=== PATIENT | male | born 1965 | race Caucasian/White ===

== ENCOUNTER 2019-09-07 11:29 | Outpatient (CLI) | payer BC, SELFPAY ==
--- NOTE | ~2019-09-07 | CT_ITS ---
EXAMINATION: CT lung screening EXAM DATE: 09/07/2019 11:56 INDICATION: Personal history of nicotine dependence. TECHNIQUE: Spiral low dose CT of the chest without contrast. Axial, coronal and sagittal images were reviewed. The dose-length product (DLP) for this examination was 123.06 mGy-cm. The exposure was t ailored according to patient size (auto mA exposure control), and iterative reconstruction (ASIR) was used as additional dose reduction technique. There is no prior study for comparison. FINDINGS: There is a pleural-based ill-defined left lower lobe opacity measuring 7 mm average dimensi on, with some associated volume loss, but also some spiculations, Image 69. Several other small pulm onary nodules up to 3-4 mm, left lower lobe image 66. Tracheobronchial tree is patent. There is no mediastinal, hilar or axillary lymphadenopathy. There are no pleural or pericardial effusions. Th ere is no pneumothorax. Heart normal in size. There is mild coronary arterial calcification, poonam rial sclerosis. Mild hyperinflation and emphysema. Small amount of tracheal opacity probably mucus. U pper abdomen is unremarkable. There is thoracic spondylosis without osteoblastic or osteolytic lesi ons identified. IMPRESSION: Lung-RADS category 4x, could be infectious or postinfectious but short interval follow-up chest CT recommended in 1 month. Reviewed, dictated and finalized at location A. IMPRESSION: Lung-RADS category 4x, could be infectious or postinfectious but sh ort interval follow-up chest CT recommended in 1 month.
== END 2019-09-07 11:30 | disposition home or self-care (01) ==
PROVIDERS: PCP Family Medicine; Visit Provider Family Medicine
DX: Z12.2 Encounter for screening for malignant neoplasm of respiratory organs (principal); Z87.891 Personal history of nicotine dependence; R91.8 Other nonspecific abnormal finding of lung field
CPT/HCPCS: G0297

== ENCOUNTER 2019-11-17 15:38 | Outpatient (CLI) | payer BC, SELFPAY ==
--- NOTE | ~2019-11-17 | XR_ITS ---
XR chest 2V DATE: 11/17/2019 15:59 INDICATION: Pneumonia; recent CT lung screening examination of 09/07/2019 reported a pleural based ill- defined left lower lobe opacity measures 7 mm average dimension TECHNIQUE: PA and lateral views COMPARISON: 09/17/2019 CT lung screening FINDINGS: No pulmonary infiltrate or consolidation is evident. Normal heart size. No hilar or mediastinal enlargement. IMPRESSION: This chest radiographic examination is not sufficient to fully evaluate/compare the previ ously reported small pleural-based opacity in the left lower lobe on the 09/07/2019 CT lung screening e xamination. Repeat CT lung screening views are recommended. Reviewed, dictated and finalized at location A. IMPRESSION: This chest radiographic examination is not sufficient to fully eval uate/compare the previously reported small pleural-based opacity in the left lo wer lobe on the 09/07/2019 CT lung screening examination. Repeat CT lung screenin g views are recommended.
== END 2019-11-17 15:39 | disposition home or self-care (01) ==
LOC: ANHIMG 15:44
PROVIDERS: PCP Family Medicine; Visit Provider Family Medicine
DX: J18.9 Pneumonia, unspecified organism (principal)
CPT/HCPCS: 71046

== ENCOUNTER 2019-11-21 07:48 | Outpatient (CLI) | payer BC, SELFPAY ==
--- NOTE | ~2019-11-21 | CT_ITS ---
EXAMINATION: CT chest wo con DATE: 11/21/2019 08:11 INDICATION: Solitary lung nodule TECHNIQUE: Computed tomography (CT) of the chest was performed without intravenous contrast. Automate d exposure control and iterative reconstruction technique were employed. Exam dose: 214.96 mGy-cm to manny exam DLP. COMPARISON: 09/17/2019 CT lung screening 11/16/2021 view chest FINDINGS: There is interval enlargement of the irregular posterior pleural-based mass in the left low er lobe since 09/17/2019. Currently this measures up to 1.46 x 0.8 cm compared to 1.16 x 0.6 mm on 08/29. CT-guided percutaneous needle biopsy is recommended. The lungs are otherwise clear. No hilar or mediastinal mass lesion or lymphadenopathy. Normal heart size. Coronary artery calcification. No pericardial or pleural effusion. IMPRESSION: Suspicious irregular enlarging posterior pleura-based mass in left lower lobe; CT-guided percutaneous needle biopsy is recommended. Dr. Mcdaniels left a voicemail message on Dr. Holbrook's phone at [phone] on 11/21/2019 at 1045 hours, with the finding of the increased size of the irregular pleural-based mass currently measuring approx imately 8 x 14 mm, and recommendation for CT-guided percutaneous needle biopsy Reviewed, dictated and finalized at Location A. Reviewed, dictated and finalized at location A. IMPRESSION: Suspicious irregular enlarging posterior pleura-based mass in left lower lobe; CT-guided percutaneous needle biopsy is recommended. Dr. Mcdaniels left a voicemail message on Dr. Holbrook's phone at [phone] on 10/30 at 1045 hours, with the finding of the increased size of the irregular p leural-based mass currently measuring approximately 8 x 14 mm, and recommendati on for CT-guided percutaneous needle biopsy
== END 2019-11-21 07:49 | disposition home or self-care (01) ==
PROVIDERS: PCP Family Medicine; Visit Provider Family Medicine
DX: R91.8 Other nonspecific abnormal finding of lung field (principal)
CPT/HCPCS: 71250

== ENCOUNTER 2019-11-30 09:01 | Outpatient (CLI) | payer BC, SELFPAY ==
[2019-11-26 13:56] VITALS: BMI 26.6
[2019-11-30] VITALS (9 sets, daily range): BP systolic 113–135; BP diastolic 70–96; PULSE 54–75; RESP 14–18; O2SAT 99–100
--- NOTE | ~2019-11-30 | XR_ITS ---
EXAMINATION: XR chest 1V portable DATE: 11/30/2019 14:39 INDICATION: Left lung nodule status post percutaneous biopsy. TECHNIQUE: A single frontal view of the chest was obtained. COMPARISON: Chest single view at 12:47 PM FINDINGS: There is mild atelectasis in left lower lung zone. No pleural effusion or pneumothorax. The heart size is normal. IMPRESSION: 1. Mild atelectasis in left lower lung zone. Reviewed, dictated and finalized at location A.
--- NOTE | ~2019-11-30 | CT_ITS ---
EXAMINATION: CT biopsy lung DATE: 11/30/2019 11:45 INDICATION: Left lung nodule. TECHNIQUE: The procedure including the risks, benefits, and alternatives and possibility of chest tub e placement were discussed with the patient. Risks discussed included infection, approximately 1/20 r isk of symptomatic hemorrhage beyond mild hemoptysis, approximately 1/3 risk of pneumothorax, approxi mately 1/10 risk of pneumothorax severe enough to warrant chest tube placement, and rarely . The patient understood the risks and agreed to proceed. The patient was placed prone. The skin overlyin g the left lung lower lobe was prepped and draped in sterile fashion. Anesthetic was administered wi th 1% lidocaine subcutaneously. A 19 gauge outer needle was advanced under CT guidance to the lesion of interest. A 20 gauge core biopsy needle was then used to obtain 3 core biopsy specimens. The need le was removed and the entry site was cleaned and dressed. The mA was adjusted according to patient s ize. Iterative reconstruction technique was employed. The dose-length product was 160.27 mGy-cm. The re were no immediate complications. FINDINGS: CT images demonstrate the outer needle tip in a 10 mm nodule in left lung lower lobe. IMPRESSION: 1. CT-guided core needle biopsy of a nodule in left lung lower lobe. Reviewed, dictated and finalized at location A.
--- NOTE | ~2019-11-30 | XR_ITS ---
EXAMINATION: XR chest 1V portable DATE: 11/30/2019 12:50 INDICATION: Left lung nodule status post percutaneous biopsy. TECHNIQUE: A single frontal view of the chest was obtained. COMPARISON: Chest single view 11:41 AM FINDINGS: There is mild atelectasis in left lower lung zone. No pleural effusion or pneumothorax. The heart size is normal. IMPRESSION: 1. Mild atelectasis in left lower lung zone. Reviewed, dictated and finalized at location A.
--- NOTE | ~2019-11-30 | XR_ITS ---
EXAMINATION: XR chest 1V DATE: 11/30/2019 11:43 INDICATION: Left lung nodule status post percutaneous biopsy. TECHNIQUE: A single frontal view of the chest was obtained. COMPARISON: Chest CT 11/21/2019, chest 2 views 11/17/2019 FINDINGS: There are mild airspace opacities in left lower lung zone. No pleural effusion or pneumotho rax. The heart size is normal. IMPRESSION: 1. Mild airspace opacities in left lower lung zone, consistent with hemorrhage. Reviewed, dictated and finalized at location A.
[2019-11-30 09:46] LABS: Mean Platelet Volume 9.8 fl (7.4-10.4); Platelet Count Result 217 k/mm3 (150-375)
[2019-11-30 09:57] LABS: INR 0.9; Prothrombin Time 12.1 Seconds (11.1-14.7)
--- NOTE | 2019-11-30 15:09 | SUR.PHASEII ---
1455 - dr. watkins called and stated that pt could be discharged home 1500 - iv dc'd.
== END 2019-11-30 09:02 | disposition home or self-care (01) ==
PROVIDERS: Radiology Diagnostic Radiology; PCP Family Medicine; Visit Provider Family Medicine
DX: R91.8 Other nonspecific abnormal finding of lung field (principal)
CPT/HCPCS: 32405; 36415; 71045; 77012; 85049; 85610; 88305

== ENCOUNTER → 2020-02-19 11:48 | Outpatient (CLI) | payer BC, SELFPAY ==
--- NOTE | ~2020-02-19 | XR_ITS ---
EXAMINATION: XR chest 2V EXAM DATE: 02/19/2020 12:19 INDICATION: Cough. Clinical concern for pneumonia. TECHNIQUE: Frontal and lateral projections of the chest obtained and reviewed. Comparison is made to prior examination from 11/30/2019. FINDINGS: Interval development of left hemidiaphragm silhouetting, suspect opacified left lower lobe , could be atelectasis, postobstructive atelectasis, atelectasis and pneumonia. Please clinically cor relate and obtain follow-up exam. If this persists, CT is indicated to exclude underlying cancer. The lungs are otherwise clear. There are no pleural effusions. The cardiomediastinal silhouette is within normal limits. There is no pneumothorax suspected. The bones and soft tissues are unremarkab le. IMPRESSION: Opacified left lower lobe with volume loss. Differential diagnosis includes atelectasis, pneumonia and cancer. Follow-up indicated. Reviewed, dictated and finalized at location B.
== END ==
PROVIDERS: PCP Family Medicine; Visit Provider Family Medicine
DX: R05 Cough (principal)
CPT/HCPCS: 71046

== ENCOUNTER 2020-03-11 02:06 | Inpatient (IN) | payer BC, SELFPAY ==
[2020-03-11] VITALS (12 sets, daily range): BP systolic 106–140; BP diastolic 74–86; PULSE 81–98; RESP 14–20; TEMP 36.6–37.2; O2SAT 93–99; BMI 25.1
--- NOTE | ~2020-03-11 | CT_ITS ---
EXAMINATION: CTA chest PE protocol DATE: 03/11/2020 03:10 INDICATION: Shortness of breath, cough and chest pain. Lung mass. TECHNIQUE: Computed tomography (CT) pulmonary angiogram of the chest was performed with 100 mL Omnipa que-350 intravenous contrast. Additional 3D reconstructions utilizing coronal maximum intensity proje ction (MIP) were performed. Automated exposure control and iterative reconstruction technique were em ployed. The dose-length product was 507.90 mGy-cm. COMPARISON: 11/21/2019 FINDINGS: Excellent contrast opacification of the pulmonary arteries. There is mild streak artifact from dense contrast in the superior vena cava and right atrium. Moderate scattered respiratory motion artifact w hich decreases sensitivity in many of the segmental and subsegmental pulmonary arteries. No definitiv e pulmonary embolism. Large left pleural effusion with near complete collapse of the left lower lobe and with dependent compressive atelectasis in the lingula and left upper lobe. Minimal dependent atel ectasis in the right lower lobe. Mild emphysema. No pulmonary edema or evident pneumonia. Mediastinal lymphadenopathy including a 15 x 13 mm AP window lymph node along with stranding and some nodularity in the subpleural fat of the mediastinum and left paracardial fat pad which is concerning for metast atic disease. Heart size is normal. New 2.2 cm hypodense mass in segment 8 of the liver which is also concerning for metastatic disease. Bones are unremarkable. IMPRESSION: 1. No pulmonary embolism. Sensitivity decreased in the segmental and essentially nondiagnostic in man y of the subsegmental pulmonary arteries due to moderate scattered motion artifact. 2. Large likely malignant left pleural effusion with associated atelectasis including near complete c ollapse of the left lower lobe. Consider diagnostic thoracentesis. 3. Mediastinal lymphadenopathy along with stranding and nodularity in the mediastinal and left perica rdial fat which is concerning for metastatic disease. 4. Likely metastatic 2.2 cm hepatic mass. 5. Mild emphysema. Reviewed, dictated and finalized at location A. IMPRESSION: 1. No pulmonary embolism. Sensitivity decreased in the segmental and essentiall y nondiagnostic in many of the subsegmental pulmonary arteries due to moderate scattered motion artifact. 2. Large likely malignant left pleural effusion with associated atelectasis inc luding near complete collapse of the left lower lobe. Consider diagnostic thora centesis. 3. Mediastinal lymphadenopathy along with stranding and nodularity in the media stinal and left pericardial fat which is concerning for metastatic disease. 4. Likely metastatic 2.2 cm hepatic mass. 5. Mild emphysema.
--- NOTE | ~2020-03-11 | US_ITS ---
EXAMINATION: US thoracentesis DATE: 03/11/2020 12:57 INDICATION: Left pleural effusion TECHNIQUE: The procedure and its risks and benefits were discussed with the patient. Potential risks discussed included bleeding, infection, and pneumothorax. The patient understood the risks and agreed to proceed. The skin was prepped and draped in sterile fashion. 1% lidocaine was used for local anes thesia. Under ultrasound guidance, a 5 Fr catheter with trochar was advanced into the large left pleu ral effusion. Fluid was aspirated. The catheter was removed, and a dressing was applied. There were n o immediate complications. FINDINGS: Ultrasound images demonstrate a large left pleural effusion and the catheter within the fluid. IMPRESSION: 1. Successful ultrasound-guided thoracentesis yielding 1000 mL of clear dark brian-colored fluid. Reviewed, dictated and finalized at location A. IMPRESSION: 1. Successful ultrasound-guided thoracentesis yielding 1000 mL of clear dark a mber-colored fluid.
--- NOTE | ~2020-03-11 | XR_ITS ---
EXAMINATION: XR chest 1V portable DATE: 03/11/2020 02:40 INDICATION: Shortness of breath, cough and chest pressure. TECHNIQUE: frontal view of the chest was obtained. COMPARISON: Chest radiograph dated 02/19/2020 FINDINGS: Interval development of a moderate to large left pleural effusion with compressive atelectasis. Under lying malignancy or pneumonia in the obscured left lower lung zone could not be excluded. No pulmonar y edema, pneumothorax or right-sided pleural effusion. The left heart border is obscured. The remaind er of the cardiomediastinal silhouette is normal. IMPRESSION: 1. New unilateral moderate to large left pleural effusion with associated atelectasis. Underlying pne umonia or malignancy not excludable and would consider diagnostic thoracentesis. Reviewed, dictated and finalized at location A. IMPRESSION: 1. New unilateral moderate to large left pleural effusion with associated atele ctasis. Underlying pneumonia or malignancy not excludable and would consider di agnostic thoracentesis.
--- NOTE | ~2020-03-11 | XR_ITS ---
EXAMINATION: [id number] DATE: 03/11/2020 12:41 INDICATION: Left pleural effusion postthoracentesis TECHNIQUE: frontal view of the chest was obtained. COMPARISON: Chest radiograph dated 03/11/2020 FINDINGS: Minimal decrease in a still moderate to large left pleural effusion. The right lung and left upper katerine ng are clear. Residual opacification of the lower lung zone most likely atelectasis although underlyi ng pneumonia or malignancy not excludable. No pneumothorax or right-sided pleural effusion. The left heart border remains obscured. The remainder of the cardiomediastinal silhouette is normal. IMPRESSION: 1. Residual moderate to large left pleural effusion post left thoracentesis. No pneumothorax. 2. Persistent opacification of the left lower lung zone most likely associated compressive atelectasi s although could not extruded underlying pneumonia or malignancy. Reviewed, dictated and finalized at location A. IMPRESSION: 1. Residual moderate to large left pleural effusion post left thoracentesis. No pneumothorax. 2. Persistent opacification of the left lower lung zone most likely associated compressive atelectasis although could not extruded underlying pneumonia or mal ignancy.
--- NOTE | ~2020-03-11 | XR_ITS ---
XR chest 2V 03/12/2020 08:37 Indication: Left pleural effusion postthoracentesis. Procedure: PA and lateral views of the chest Comparison: 03/11/2020 Findings: Persistent moderate left pleural effusion with underlying airspace disease, likely atelecta sis. Right lung clear. No pneumothorax. Impression: 1: Moderate left pleural effusion with underlying compressive atelectasis. Cannot exclude superimpose d pneumonia. No pneumothorax identified post thoracentesis. Reviewed, dictated and finalized at location A. Impression: 1: Moderate left pleural effusion with underlying compressive atelectasis. Nader ot exclude superimposed pneumonia. No pneumothorax identified post thoracentesi s.
--- NOTE | 2020-03-11 02:20 | ECG_ITS ---
Measurements Intervals [place] Rate: 90 P: 35 [place]: 159 QRS: 23 QRSD: 88 T: 28 QT: 333 QTc: 408 Interpretive Statements SINUS RHYTHM INCOMPLETE RIGHT BUNDLE BRANCH BLOCK LOW VOLTAGE- LIMB LEADS BORDERLINE ECG Electronically Signed On 03-11-2020 7:05:52 CDT by Jose E Washington D.O.
[2020-03-11 02:38] LABS: Basophils Absolute Auto 0.1 K/mm3 (0.0-0.1); Basophils Percent Auto 0.6 % (0.2-1.2); Eosinophils Absolute Auto 0.2 K/mm3 (0-0.3); Eosinophils Percent Auto 1.8 % (0-4.4); Hematocrit 41.3 % (42.0-52.0); Hemoglobin 14.1 g/dL (14.0-18.0); Immature Granulocyte Absolute 0.05 K/mm3 (0.00-0.031); Immature Granulocyte Percent A 0.5 % (0-0.5); Lymphocytes Absolute Auto 1.74 K/mm3 (0.9-3.2); Lymphocytes Percent Auto 16.5 % (18.3-44.2); Mean Corpuscular HGB Conc 34.1 g/dl (32-36); Mean Corpuscular Hemoglobin 31.3 pg (26-34); Mean Corpuscular Volume 91.6 fl (80-100); Mean Platelet Volume 9.5 fl (7.4-10.4); Monocytes Absolute Auto 1.3 K/mm3 (0.1-0.6); Monocytes Percent Auto 12.3 % (2.6-8.5); Neutrophils Absolute Auto 7.2 K/mm3 (1.3-6.7); Neutrophils Percent Auto 68.3 % (45.5-73.1); Platelet Count Result 296 k/mm3 (150-375); Red Blood Count 4.51 M/mm3 (4.6-6.20); White Blood Count 10.6 K/mm3 (4.5-10.0)
[2020-03-11 02:42] LABS: INR 1.1; Partial Thromboplastin Time 33.4 SECONDS (22.3-36.8)
[2020-03-11 02:43] LABS: Anion Gap 8 mmol/L (8-16); Blood Urea Nitrogen 13 mg/dL (9-20); Calcium 8.4 mg/dL (8.4-10.2); Carbon Dioxide 25 mmol/L (22-30); Chloride 101 mmol/L (98-107); Estimated CRCL calculation 90 ml/min; Estimated Glomerular Filt Rate > 60; Glucose 107 mg/dL (75-110); Sodium 134 mmol/L (137-145)
--- NOTE | 2020-03-11 02:47 | ED.SOB ---
HPI - SOB/Dyspnea General Chief Complaint: Shortness of Breath/Dyspnea Stated Complaint: cough Time Seen by Provider: 03/11/20 02:11 Source: RN notes reviewed History of Present Illness HPI Narrative: Patient presents emergency department from home for shortness of breath. Patient states that for the past 2 days he has had a cough that is been nonproductive. He states that this evening around 1 AM he began to have shortness of breath states that it feels like he is having difficulty exhaling. States is also worse if he lays down flat. He states he does have some pain over the left side of his chest with the symptoms he denies any fevers or chills abdominal pain nausea vomiting or any other symptoms. Patient has a history of lung cancer with left lower lobe lobectomy performed at [facility] in November 2019 Related Data Home Medications Medication Instructions Recorded Confirmed multivitamin 1 tablet PO DAILY 08/31/19 11/26/19 Allergies Allergy/AdvReac Type Severity Reaction Status Date / Time amoxicillin Allergy Unknown Rash Verified 02/19/20 11:17 Penicillins Allergy Unknown rash Verified 02/19/20 11:17 Review of Systems Review of Systems: Narrative: Gen.: Denies fevers or chills ENT: Denies congestion Respiratory: See HPI CV: Reports chest pain GI: Denies abdominal pain nausea, emesis or diarrhea Musculoskeletal: Denies back pain or muscle pain Neuro: Denies numbness, tingling, weakness or focal weakness Skin: Denies rash Except as documented, all other systems reviewed and negative PMFSH Past Medical History Medical History Adenosquamous carcinoma of left lung HLD (hyperlipidemia) Surgical History Surgical History (Updated 01/06/20 @ 10:35 by Parmjit Arias PA-C) Status post partial lobectomy of lung Social History Social History Smoking packs per day: 0.75 Smoking cigarettes per day: 15.0 Years smoked: 41 Smoking pack-years: 30.75 Smoking status: Former smoker Tobacco type: cigarettes Second hand tobacco smoke exposure: Yes Smoking end date: 12/23/19 Alcohol intake: never Substance use: never Substance use type: does not use Gender identity (if verbalized by the patient): Male Exam Narrative: Exam Narrative: APPEARANCE: No acute distress, nontoxic, resting in bed EYES: EOMI HEENT: Normocephalic, atraumatic, OMM RESPIRATORY: No respiratory distress decreased breath sounds in left lung base no rhonchi or rales CARDIOVASCULAR: Regular rate and rhythm without murmurs rubs or gallops. ABDOMINAL: Soft, nontender, nondistended, no rebound or guarding MUSCULOSKELETAl: Moves all extremities. No clubbing, cyanosis or edema. NEURO: Awake and alert. Following commands, speech normal, no focal deficits SKIN:: Warm, dry. No rashes lesions or abrasions PSYCHIATRIC: Normal affect/mood, Course Course Emergency Course: Reviewed old records. Patient with left lower lobe lobectomy performed at [place]. States that no further chemotherapy or treatment was needed and he does not see oncology. He did have a chest x-ray performed as an outpatient by Dr. Holbrook in January that did not have a pleural effusion at that time Discussed Dr. Barlow presentation work-up he agrees with admission at this time. Will put in for thoracentesis in a.m. Discussed with patient and family results of workup and diagnosis. Discussed need for admission. Patient and family understand and agree to current treatment plan Vital Signs Vital signs: Vital Signs Pulse Rate 88 03/11/20 02:12 Respiratory Rate 16 03/11/20 02:12 Blood Pressure 133/79 03/11/20 02:12 Pulse Oximetry 93 03/11/20 02:12 Pulse Rate 88 03/11/20 03:43 Respiratory Rate 19 03/11/20 03:43 Blood Pressure 113/86 03/11/20 03:43 Pulse Oximetry 96 03/11/20 03:43 MDM - SOB/Dyspnea Lab Data Result diagra
[2020-03-11 02:55] LABS: Troponin I < 0.012 ng/mL (0.000-0.034)
[2020-03-11 03:21] LABS: Lactic Acid Reflex 0.6 mmol/L (0.7-2.1)
--- NOTE | 2020-03-11 04:24 | PM.IMHP ---
H&P: HPI History of Present Illness Date/Time: 03/11/20 04:24 Chief complaint: Left pleural effusion, dyspnea Narrative: This is a 54 year old male with known history of recently diagnosed left lower lobe lung cancer s/p left lower lobectomy in November 2019 who presented to the hospital [facility] with a complaint of 2 days of nonproductive coughing and increased shortness of breath. He began to notice this evening that he was having a very difficult time laying flat and felt like he couldn't get a good deep breath. He also has had some left lateral chest discomfort which he attributes to coughing. He denies any hemoptysis, sore throat, fever, chills, recent weight loss, or night sweats. The patient was told that his cancer should be in remission. He sees Oncology at [facility] and is under the care of Dr. Fagan. In the ER [facility] the patient was found to have a large left sided pleural effusion. He denies any previous history of pleural effusions. [facility] he also denies any nausea, vomiting, abdominal pain, dysuria, palpitations, LE swelling, diarrhea or rectal bleeding. Currently the patient is saturating 96% on room air. No other complaints. The patient has a 40+ year history of smoking. He was smoking up to 2 ppd for about 15 years and just quit smoking in November 2019. Review of Systems Review of Systems: All systems reviewed & are unremarkable except as noted in HPI and below PMFSH Past Medical History Medical History Adenosquamous carcinoma of left lung HLD (hyperlipidemia) Surgical History Surgical History Status post partial lobectomy of lung Family History Family History Mother Family history of diabetes mellitus in first degree relative Father Family history of coronary artery disease Social History Social History Smoking packs per day: 0.75 Smoking cigarettes per day: 15.0 Years smoked: 41 Smoking pack-years: 30.75 Smoking status: Former smoker Tobacco type: cigarettes Second hand tobacco smoke exposure: Yes Smoking end date: 12/23/19 Alcohol intake: never Substance use: never Substance use type: does not use Gender identity (if verbalized by the patient): Male Meds Home Medications and Allergies Home Medications Medication Instructions Recorded Confirmed Type multivitamin 1 tablet PO DAILY 08/31/19 11/26/19 History Allergies Allergy/AdvReac Type Severity Reaction Status Date / Time amoxicillin Allergy Unknown Rash Verified 02/19/20 11:17 Penicillins Allergy Unknown rash Verified 02/19/20 11:17 Vital Signs Vital Signs - 24 hr 03/11/20 02:12 03/11/20 03:43 Pulse Rate 88 88 Respiratory Rate 16 19 Blood Pressure 133/79 113/86 Pulse Oximetry 93 96 Exam Const: General: cooperative, no acute distress, alert and awake Nutritional Appearance: well nourished Orientation/consciousness: patient oriented x3 HENMT: Head: normal to inspection General nose exam: Normal external nose present Face and sinus: normal facial exam Mouth: Yes Normal oral and palatal mucosa present and Yes oropharynx normal Eyes: Pupils: Equal, round and reactive pupils present EOM: EOMs intact bilaterally Neck: Neck: supple and no JVD Thyroid: thyroid normal Lymphatic: lymphadenopathy not noted Resp: Effort & Inspection: normal respiratory effort Auscultation: breath sounds absent (Left middle/lower lung field+++ ) on th left Cardio: Rate: regular rate Rhythm: regular rhythm Heart sounds: no murmurs GI: Inspection: normal to inspection Auscultation: normal bowel sounds Skin: General skin exam: normal color and no rashes or lesions noted Neuro: General: patient oriented x3 Cranial nerves: Yes CN's II-XII intact bilaterally and Yes Equal, round and reacti
--- NOTE | 2020-03-11 04:43 | ADMGEN ---
This patient, Jorden Koch, was admitted to Medical Room 346-01. Patient/family oriented to hospital policies and general routines including ID bracelet, bed and alarms, visiting hours, pain management, procedures, bathroom and other care routines, personal items, smoking policy, room service/diet, and visiting hours. Valuables list has been completed. Information on how to activate the Rapid Response Team has been discussed. Patient/Family are encouraged to report perceived risks to care and to ask questions if they do not understand what they are told or what they should do.
[2020-03-11 05:27] LABS: INR 1.1; Prothrombin Time 13.8 Seconds (11.1-14.7)
[2020-03-11 05:28] LABS: Partial Thromboplastin Time 34.1 SECONDS (22.3-36.8)
[2020-03-11] MEDS: SODIUM CHLORIDE 0.9% IV 1,000 ML 100 ML IV CONT (05:29)
[2020-03-11 05:35] LABS: Basophils Percent Auto 0.4 % (0.2-1.2); Eosinophils Absolute Auto 0.2 K/mm3 (0-0.3); Eosinophils Percent Auto 1.5 % (0-4.4); Hematocrit 41.1 % (42.0-52.0); Hemoglobin 14.1 g/dL (14.0-18.0); Immature Granulocyte Absolute 0.06 K/mm3 (0.00-0.031); Immature Granulocyte Percent A 0.6 % (0-0.5); Lymphocytes Absolute Auto 1.67 K/mm3 (0.9-3.2); Lymphocytes Percent Auto 15.8 % (18.3-44.2); Mean Corpuscular HGB Conc 34.3 g/dl (32-36); Mean Corpuscular Hemoglobin 31.1 pg (26-34); Mean Corpuscular Volume 90.7 fl (80-100); Mean Platelet Volume 9.3 fl (7.4-10.4); Monocytes Absolute Auto 1.2 K/mm3 (0.1-0.6); Monocytes Percent Auto 11.4 % (2.6-8.5); Neutrophils Absolute Auto 7.5 K/mm3 (1.3-6.7); Neutrophils Percent Auto 70.3 % (45.5-73.1); Platelet Count Result 293 k/mm3 (150-375); Red Blood Count 4.53 M/mm3 (4.6-6.20); White Blood Count 10.6 K/mm3 (4.5-10.0)
[2020-03-11 05:54] LABS: Anion Gap 6 mmol/L (8-16); Blood Urea Nitrogen 13 mg/dL (9-20); Calcium 8.6 mg/dL (8.4-10.2); Carbon Dioxide 26 mmol/L (22-30); Chloride 102 mmol/L (98-107); Estimated CRCL calculation 90 ml/min; Estimated Glomerular Filt Rate > 60; Glucose 98 mg/dL (75-110); Lactate Dehydrogenase 567 U/L (313-618); Potassium 4.3 mmol/L (3.4-5.0); Sodium 134 mmol/L (137-145)
--- NOTE | 2020-03-11 11:26 | PM.IMPN ---
Progress Note: A&P Assessment and Plan (1) Pleural effusion on left: Code(s): J90 - Pleural effusion, not elsewhere classified Status: Acute Assessment and Plan: U/S guided diagnostic thoracentesis with cytology to be performed today. Dr. Cao consulted and appreciate recommendations. Await further rec from oncology Likely do CXR tomorrow morning to ensure no pneumothorax or other complications Monitor (2) Acute dyspnea: Code(s): R06.00 - Dyspnea, unspecified Status: Acute Assessment and Plan: Secondary to acute pleural effusion. Oxygen supplementation as needed. thoracentesis to be done today (3) Adenosquamous carcinoma of left lung: Code(s): C34.92 - Malignant neoplasm of unspecified part of left bronchus or lung Status: Chronic Assessment and Plan: r/o lung cancer recurrence. It should be noted that [facility] interpretation makes no mention of the mediastinal lymphadenopathy and 2.2 hepatic mass which is noted on this facility's radiology interpretation; concerning for recurrence. Spoke with Dr. Cao who will discuss further after thoracentesis. Await further rec from Dr. Cao Likely need prompt follow up with his established oncologist. (4) HLD (hyperlipidemia): Qualifiers: Hyperlipidemia type: unspecified Qualified Code(s): E78.5 - Hyperlipidemia, unspecified Code(s): E78.5 - Hyperlipidemia, unspecified Status: Chronic Assessment and Plan: Stable. Subjective Date/time seen: 03/11/20 11:26 Interval history: Patient is a 54 yo M with known history of recently diagnosed left lower lobe lung cancer s/p left lower lobectomy in November 2019 who is here for dyspnea likely secondary to large likely malignant left pleural effusion with associated atelectasis and near complete collapse of left lower lobe. Patient is feeling reasonable today; about the same as yesterday. Mild cough when breathing out. No other complaints. Denies f/c/s, myalgias/arthralgias, headaches, dizziness, lightheadedness, changes in v/h, cp/palpitations, sob/cough, n/v/d/c, abd pain, changes in BMs, dysuria, hematuria, cloudy urine, calf pain/swelling. Review of Systems Review of Systems: All systems reviewed & are unremarkable except as noted in HPI and below Exam Narrative: Exam Narrative: General: Patient sitting upright in bed in no acute distress. is in room visiting HEENT: Normocephalic, EOMI, oral mucosa moist. Cardiovascular: Rate and rhythm are regular. No notable murmur, rub, or gallop. Respiratory: Lungs clear to auscultation R lung castro and anterior left lung field. No breath sounds left posterior lung castro. Non-labored breathing. Occasional cough. No acute respiratory distress Abdomen: Soft, non-tender, non-distended, bowel sounds present. Extremities: Peripheral pulses intact. No edema. Neuro: No focal neurological deficits. Speech is clear. Objective Data Vital Signs Vital Signs: Last Vital Signs Temp 98.4 F 03/11/20 04:46 Pulse 82 03/11/20 08:00 Resp 18 03/11/20 04:46 BP 122/76 03/11/20 04:46 Pulse Ox 99 03/11/20 04:46 Meds/Results Medications: Active Medications Generic Name Dose Route Start Last Admin Trade Name Freq PRN Reason Stop Dose Admin Acetaminophen 650 mg 03/11/20 04:50 Tylenol Tablet PO Q4H PRN Mild Pain (1-3) or Fever Hydrocodone Bitart/Acetaminophen 1 tab 03/11/20 04:50 [place] 5-325 Mg PO Q4H PRN Moderate Pain (4-6) Radiology Results: ITS Impressions Chest X-Ray 03/11/20 08:37 IMPRESSION: 1. New unilateral moderate to large left pleural effusion with associated atelectasis. Underlying pneumonia or malignancy not excludable and would consider diagnostic thoracentesis. Chest CTA 03/01
[2020-03-11 12:41] LABS: pH Pleural Fluid 7.388 (7.210-7.500)
[2020-03-11 13:55] LABS: Appearance Pleural Fluid Cloudy (Clear); Color Pleural Fluid Red (Colorless); Pleural fluid source Pleural fluid
[2020-03-11 13:56] LABS: Lymphocytes Pleural Fluid 42 %; Mesothelial Cells Pleural Flui 4 %; Monocytes Pleural Fluid 4 %; Neutrophils Pleural Fluid 50 % (0-25)
--- NOTE | 2020-03-11 15:55 | PDONCCN ---
[facility] - Date of Consult Date/Time: 03/11/20 15:55 Requesting Physician: Vic Franz PA-C Primary Care Provider: Renato Holbrook MD - Consult Narrative Reason for consult: Likely metastatic non-small cell lung cancer Narrative: Jorden Koch is a 54 year old male This is a pleasant 54-year-old male with history of smoking who was recently diagnosed with left lower lobe non-small cell lung cancer status post left lower lobe lobectomy done in November of 2019. Apparently patient had early stage cancer without any lymph node involvement. Surgery was performed by Dr. Stone at [facility]. He now came into the hospital with increasing shortness of breath along with nonproductive cough without any hemoptysis for last 2 days duration. He denies any fever chills and weight loss. He denies any bone pain and headache. Patient quit smoking right before the surgery. CT scan was performed that showed no evidence of pulmonary embolism but a large likely malignant pleural effusion along with mediastinal lymphadenopathy and 2.2 cm hepatic mass. He denies any abdominal pain. Review of Systems - Review of Systems All systems reviewed & are unremarkable except as noted in HPI and [facility] Medical History: Medical History (Last Reviewed 03/11/20 @ 04:49 by Hubert Barlow MD) Adenosquamous carcinoma of left lung HLD (hyperlipidemia) Surgical History: Surgical History (Last Reviewed 03/11/20 @ 04:49 by Hubert Barlow MD) Status post partial lobectomy of lung Family History: Family History (Last Updated 03/11/20 @ 05:36 by Latonya River RN) Mother Family history of diabetes mellitus in first degree relative IBS (irritable bowel syndrome) Father Family history of coronary artery disease - Social History Social History: Social History (Last Reviewed 03/11/20 @ 04:49 by Hubert Barlow MD) Gender Identity: Gender identity (if verbalized by the patient): Male Alcohol Use: Alcohol intake: never Substance Use: Substance use: never Substance use type: does not use Others: Spiritual care concerns: No Smoking Status: Smoking status: Former smoker Tobacco type: cigarettes Second hand tobacco smoke exposure: Yes Smoking end date: 12/23/19 Smoking Pack-years: Smoking packs per day: 0.75 Smoking cigarettes per day: 15.0 Years smoked: 41 Smoking pack-years: 30.75 Meds Home Medications Medication Instructions Recorded Confirmed Type No Home Medications 03/11/20 03/11/20 History Allergies Allergy/AdvReac Type Severity Reaction Status Date / Time amoxicillin Allergy Unknown Rash Verified 02/19/20 11:17 Penicillins Allergy Unknown rash Verified 02/19/20 11:17 Results - Labs CBC & Chem 7: 03/11/20 05:10 03/11/20 05:10 Labs: Short CBC 03/11/20 03/11/20 Range/Units 02:26 05:10 WBC 10.6 H 10.6 H (4.5-10.0) K/mm3 Hgb 14.1 14.1 (14.0-18.0) g/dL Hct 41.3 L 41.1 L (42.0-52.0) % Plt Count 296 293 (150-375) k/mm3 BMP 03/11/20 03/11/20 02:26 05:10 Sodium 134 L 134 L Potassium 4.0 4.3 Chloride 101 102 Carbon Dioxide 25 26 BUN 13 13 Creatinine 0.80 0.80 Glucose 107 98 Calcium 8.4 8.6 Cardiac Enzymes 03/11/20 Range/Units 02:26 Troponin I < 0.012 (0.000-0.034) ng/mL Assessment and Plan - Additional Plan History of early stage non-small cell lung cancer is status post left lower lobectomy in November of 2019. Patient now came into the hospital with increasing short along with nonproductive cough. CT scan showed malignant looking left-sided pleural effusion along with mediastinal lymphadenopathy and 2.2 cm hepatic mass. These findings are quite worrisome for metastatic non-small cell lung cancer. Thoracentesis was performed today and cytology is pending. I have provided this patient my office information for further workup and management
[2020-03-12] VITALS: PULSE 87
[2020-03-12 04:00] VITALS: PULSE 80
[2020-03-12 05:56] VITALS: BP 118/74; PULSE 86; RESP 14; TEMP 36.8; O2SAT 93
[2020-03-12 06:43] LABS: Basophils Absolute Auto 0.1 K/mm3 (0.0-0.1); Basophils Percent Auto 0.7 % (0.2-1.2); Eosinophils Absolute Auto 0.2 K/mm3 (0-0.3); Eosinophils Percent Auto 2.4 % (0-4.4); Hematocrit 41.2 % (42.0-52.0); Hemoglobin 14.3 g/dL (14.0-18.0); Immature Granulocyte Absolute 0.05 K/mm3 (0.00-0.031); Immature Granulocyte Percent A 0.5 % (0-0.5); Lymphocytes Absolute Auto 1.71 K/mm3 (0.9-3.2); Lymphocytes Percent Auto 17.4 % (18.3-44.2); Mean Corpuscular HGB Conc 34.7 g/dl (32-36); Mean Corpuscular Volume 89.2 fl (80-100); Mean Platelet Volume 9.4 fl (7.4-10.4); Monocytes Absolute Auto 1.2 K/mm3 (0.1-0.6); Monocytes Percent Auto 11.7 % (2.6-8.5); Neutrophils Absolute Auto 6.6 K/mm3 (1.3-6.7); Neutrophils Percent Auto 67.3 % (45.5-73.1); Platelet Count Result 322 k/mm3 (150-375); Red Blood Count 4.62 M/mm3 (4.6-6.20); Red Cell Distribution Width 11.9 % (11.5-14.5); White Blood Count 9.8 K/mm3 (4.5-10.0)
[2020-03-12 07:15] LABS: Magnesium 2.2 mg/dL (1.6-2.3)
[2020-03-12 07:18] LABS: Anion Gap 7 mmol/L (8-16); Blood Urea Nitrogen 12 mg/dL (9-20); Calcium 8.4 mg/dL (8.4-10.2); Carbon Dioxide 25 mmol/L (22-30); Chloride 103 mmol/L (98-107); Estimated CRCL calculation 102 ml/min; Estimated Glomerular Filt Rate > 60; Glucose 99 mg/dL (75-110); Potassium 3.9 mmol/L (3.4-5.0); Sodium 135 mmol/L (137-145)
[2020-03-12 08:00] VITALS: PULSE 86
--- NOTE | 2020-03-12 09:36 | PM.DS ---
DS: Admitting Diagnosis Admitting Diagnosis Admitting Diagnosis: Left pleural effusion, dyspnea DS: Discharge Diagnosis Discharge Diagnosis (1) Pleural effusion on left: Code(s): J90 - Pleural effusion, not elsewhere classified Status: Acute Assessment and Plan: U/S guided diagnostic thoracentesis with cytology performed yesterday. Labs/flow cytometry pending. Cytology shows FEW ATYPICAL CELLS ON BACKGROUND OF REACTIVE MESOTHELIAL CELLS, ACUTE INFLAMMATION, AND BLOOD. RECOMMEND CYTOLOGIC EVALUATION (A MORE THOROUGH EVALUATION) OF THIS SPECIMEN. Dr. Cao consulted and appreciate recommendations. Patient has clinically improved. Dr. Cao recommends PET scan as outpatient. CXR shows moderate pleural effusion F/u with Dr. Stone or Dr. Cao. Patient to call his oncologist Saturday. He will likely need PET scan in near future with CTA findings of 2.2 liver mass and mediastinal lymphadenopathy Encouraged patient to use his IS at home from his previous surgery to help improve atelectasis D/c home today (2) Acute dyspnea: Code(s): R06.00 - Dyspnea, unspecified Status: Acute Assessment and Plan: Secondary to acute pleural effusion. Significant improvement since yesterday. S/p thoracentesis yesterday see above (3) Adenosquamous carcinoma of left lung: Code(s): C34.92 - Malignant neoplasm of unspecified part of left bronchus or lung Status: Chronic Assessment and Plan: r/o lung cancer recurrence. 2.2 cm mass and mediastinal lymphadenopathy noted on chest CTA. Dr. Cao following and appreciate recommendations. Cytometry flow pending on pleural fluid pathology f/u with established oncologist or Dr. Cao for further outpatient work up see above (4) HLD (hyperlipidemia): Qualifiers: Hyperlipidemia type: unspecified Qualified Code(s): E78.5 - Hyperlipidemia, unspecified Code(s): E78.5 - Hyperlipidemia, unspecified Status: Chronic Assessment and Plan: Stable. DS: Summary Hospital Course Reason for hospitalization: SOB, MEDLEY; large left sided pleural effusion, possible recurrence of adenosquamous carcinoma of left lung based on imaging Hospital Course: Patient is a 54 yo M with known history of recently diagnosed left lower lobe lung cancer s/p left lower lobectomy in November 2019 who presented to the hospital on 03/11 with a complaint of 2 days of nonproductive coughing and increased shortness of breath. While in the ED, CTA of the chest revealed a large, likely malignant, left pleural effusion with associated atelectasis including near complete collapse of the left lower lobe, mediastinal lymphadenopathy, and a likely metastatic 2.2 cm hepatic mass. Patient admitted under this setting. Patient was not found to be hypoxic and satting low 90s on RA. Please see H&P for further details. Presenting VS: temp 98.4 Pulse Resp BP Pulse Ox 88 16 133/79 93 03/11/20 02:12 03/11/20 02:12 03/11/20 02:12 03/11/20 02:12 Presenting Pertinent labs: Presenting cbc, coag, chemistry grossly unremarkable. Pleural fluid from thoracentesis later in stay revealed 1L of red/cloudy fluid, pH of 7.388, 50% neutrophils, 42% lymph, 4% mono, 4% meso; the rest of pleural fluid labs pending. Pathology: LEFT PLEURAL FLUID: - FEW ATYPICAL CELLS ON BACKGROUND OF REACTIVE MESOTHELIAL CELLS, ACUTE INFLAMMATION, AND BLOOD. - RECOMMEND CYTOLOGIC EVALUATION (A MORE THOROUGH EVALUATION) OF THIS SPECIMEN. - FLOW CYTOMETRY IN PROGRESS. Micro: BCx NGTD x 2 after 2 days Imaging: Chest X-Ray 03/11/20 08:37 IMPRESSION: 1. New unilateral moderate to large left pleural effusion with associated atelectasis. Underlying pneumonia or malignancy not excludable and would consider diagnostic thoracentesis. Chest CTA 03/11/20 08:38 IMPRESSION
[2020-03-15 05:39] LABS: Glucose Pleural Fluid 88 mg/dL; LDH Pleural Fluid 488 U/L; Total Protein Pleural Fluid 4.5 g/dL
== END 2020-03-12 10:35 | disposition home or self-care (01) | DRG 181 ==
LOC: ANHED 02:36 → ANH3MED 04:18
PROVIDERS: Physician Assistant; Admitting Provider Family Medicine; Emergency Provider Emergency Medicine; PCP Family Medicine; Visit Provider Family Medicine
DX: C34.32 Malignant neoplasm of lower lobe, left bronchus or lung (principal); J90 Pleural effusion, not elsewhere classified; R16.0 Hepatomegaly, not elsewhere classified; R59.0 Localized enlarged lymph nodes; E78.5 Hyperlipidemia, unspecified; Z90.2 Acquired absence of lung [part of]; Z87.891 Personal history of nicotine dependence; Z88.0 Allergy status to penicillin
CPT/HCPCS: 32555; 36415; 71045; 71046; 71275; 80048; 82945; 83605; 83615; 83735; 83986; 84157; 84311; 84484; 85025; 85610; 85730; 87040; 88104; 88108; 88184; 88305; 89051; 93005; 96360; 96361; 99285; G0378; J7030; Q9967

== ENCOUNTER 2020-03-14 15:16 | Outpatient (CLI) | payer BC, SELFPAY ==
--- NOTE | ~2020-03-14 | XR_ITS ---
XR chest 2V 03/14/2020 15:36 Indication: Left pleural effusion. Dyspnea. Procedure: 2 view chest Comparison: Comparison to multiple prior studies sequentially, with oldest reviewed study dated 03/12. Findings: Large left pleural effusion with underlying compressive atelectasis. Right lung clear. No a cute osseous abnormality. Impression: 1: Large left pleural effusion with underlying compressive atelectasis. Reviewed, dictated and finalized at location B. Impression: 1: Large left pleural effusion with underlying compressive atelectasis.
== END 2020-03-14 15:17 | disposition home or self-care (01) ==
PROVIDERS: PCP Family Medicine; Visit Provider Family Medicine
DX: J90 Pleural effusion, not elsewhere classified (principal)
CPT/HCPCS: 71046

== ENCOUNTER 2020-10-27 18:18 | Emergency (ER) | payer BC, SELFPAY ==
[2020-10-27 18:56] VITALS: BP 92/53; PULSE 98; RESP 18; TEMP 36.2; O2SAT 99
[2020-10-27 19:19] LABS: Basophils Percent Auto 0.6 % (0.2-1.2); Eosinophils Absolute Auto 0.4 K/mm3 (0-0.3); Eosinophils Percent Auto 7.8 % (0-4.4); Hematocrit 39.2 % (42.0-52.0); Hemoglobin 13.4 g/dL (14.0-18.0); Immature Granulocyte Absolute 0.01 K/mm3 (0.00-0.031); Immature Granulocyte Percent A 0.2 % (0-0.5); Lymphocytes Absolute Auto 1.88 K/mm3 (0.9-3.2); Lymphocytes Percent Auto 34.8 % (18.3-44.2); Mean Corpuscular HGB Conc 34.2 g/dl (32-36); Mean Corpuscular Hemoglobin 31.5 pg (26-34); Mean Corpuscular Volume 92.2 fl (80-100); Mean Platelet Volume 9.3 fl (7.4-10.4); Monocytes Absolute Auto 0.9 K/mm3 (0.1-0.6); Monocytes Percent Auto 16.5 % (2.6-8.5); Neutrophils Absolute Auto 2.2 K/mm3 (1.3-6.7); Neutrophils Percent Auto 40.1 % (45.5-73.1); Platelet Count Result 224 k/mm3 (150-375); Red Blood Count 4.25 M/mm3 (4.6-6.20); Red Cell Distribution Width 11.9 % (11.5-14.5); White Blood Count 5.4 K/mm3 (4.5-10.0)
[2020-10-27 19:28] LABS: Alanine Aminotransferase 26 U/L (4-50); Albumin Level 3.9 g/dL (3.5-5.1); Alkaline Phosphatase 66 U/L (38-126); Anion Gap 4 mmol/L (8-16); Aspartate Amino Transferase 49 U/L (17-59); Blood Urea Nitrogen 12 mg/dL (9-20); Carbon Dioxide 31 mmol/L (22-30); Chloride 100 mmol/L (98-107); Estimated CRCL calculation 100 ml/min; Estimated Glomerular Filt Rate > 60; Glucose 99 mg/dL (75-110); Lipase 75 U/L (23-300); Sodium 135 mmol/L (137-145)
[2020-10-27 19:37] LABS: Potassium 4.1 mmol/L (3.4-5.0)
--- NOTE | 2020-10-27 21:44 | ED.NAVMDI ---
HPI - Nausea/Vomiting/Diarrhea General Chief complaint: Nausea/Vomiting/Diarrhea Stated complaint: Vomiting,Hx Lung Ca Time Seen by Provider: 10/27/20 21:43 Source: patient Mode of arrival: ambulatory Limitations: no limitations History of Present Illness HPI Narrative: Patient is a 55-year-old male complaining of generalized weakness, loss of appetite and nausea vomiting that started 4 to 5 weeks ago after receiving 2 Covid vaccines and starting immunotherapy all within a month period. Patient states that he knows his blood in his vomitus prior to arrival, one episode, has not recurred since, and that is why he is here. Patient denies abdominal pain. Patient currently on immunotherapy for his stage IV lung CA. Patient denies any chest pain, shortness of breath, abdominal pain, diarrhea, fever or chills. Patient denies any urinary symptoms. Related Data Allergies Allergy/AdvReac Type Severity Reaction Status Date / Time amoxicillin Allergy Unknown Rash Verified 10/05/20 13:02 Penicillins Allergy Unknown rash Verified 10/05/20 13:02 Review of Systems Review of Systems: All systems reviewed & are unremarkable except as noted in HPI and below Constitutional: Constitutional: Denies body ache(s), Denies chills, Denies excessive sweating, Denies fever(s), Denies headache(s), Denies lethargy, Denies malaise and Denies weight loss Eyes: Eyes: Denies blurry vision, Denies change in vision and Denies loss of vision ENT: Denies dizziness, Denies ear discharge, Denies headache(s), Denies lip swelling, Denies epistaxis, Denies nasal congestion, Denies neck pain, Denies throat swelling and Denies tongue swelling Cardiovascular: Cardiovascular: Denies chest pain, Denies chest pain at rest, Denies chest pain with activity, Denies diaphoresis, Denies rapid heart rate, Denies edema, Denies irregular heart rhythm, Denies lightheadedness, Denies palpitations, Denies dyspnea and Denies dyspnea on exertion Respiratory: Respiratory: Denies chest congestion, Denies cough, Denies hemoptysis, Denies dyspnea and Denies dyspnea on exertion Gastrointestinal: Gastrointestinal: Denies abdominal pain, Denies melena, Denies hematochezia, Denies diarrhea and Denies hematemesis Musculoskeletal: Musculoskeletal: Denies abnormal gait, Denies deformity, Denies joint swelling, Denies limited range of motion, Denies neck pain and Denies numbness Neurologic: Denies Abnormal speech present, Denies abnormal gait, Denies confusion, Denies dizziness, Denies headache(s), Denies focal weakness, Denies loss of vision, Denies numbness, Denies Other visual disturbances and Denies Sensory deficit (Neuro) Psychiatric: Psychiatric: Denies confusion, Denies depression, Denies auditory hallucinations, Denies homicidal ideation and Denies suicidal ideation Endocrine: Endocrine: Denies cold intolerance, Denies excessive sweating, Denies heat intolerance and Denies palpitations Hematologic/Lymphatic: Hematologic/Lymphatic: Denies easy bleeding and Denies easy bruising Allergic/Immunologic: Allergic/Immunologic: Denies lip swelling, Denies throat swelling and Denies tongue swelling PMFSH Past Medical History Medical History Adenosquamous carcinoma of left lung HLD (hyperlipidemia) Metastatic lung cancer (metastasis from lung to other site) Surgical History Surgical History Status post partial lobectomy of lung Family History Family History Mother Family history of diabetes mellitus in first degree relative IBS (irritable bowel syndrome) Father Family history of coronary artery disease Social History Social History Smoking packs per day: 0.75 Smoking cigarettes per day: 15.0 Years smoked: 41 Smoking pack-years: 30.75 Smoking status: Former smoker To
[2020-10-27 22:05] VITALS: BP 93/65; PULSE 93; RESP 16; TEMP 36.4; O2SAT 96
[2020-10-27] MEDS: LACTATED RINGERS 1,000 ML 999 ML IV CONT (22:33)
[2020-10-27 23:07] VITALS: BP 99/66; PULSE 87; RESP 18; O2SAT 97
[2020-10-27 23:22] VITALS: BP 103/70; PULSE 86
[2020-10-27 23:23] VITALS: BP 93/70; PULSE 93
[2020-10-27 23:24] VITALS: BP 87/64; PULSE 103
[2020-10-27 23:38] LABS: Add Urine Microscopic? YES; Appearance Urine Cloudy (Clear); Bilirubin Urine Negative (Negative); Blood Urine Negative (Negative); Color Urine Yellow (Yellow); Glucose Urine UA Negative (Negative); Ketones Urine Negative (Negative); Leukocyte Esterase Ur Negative LEU/UL (Negative); Mucus Urine Rare /lpf; Nitrate Urine Negative (Negative); Protein Urine Negative (Negative); RBC Urine 0-2 /hpf (0-2); Specific Grav Ur 1.013 (1.001-1.035); Squamous Epithelial Cell Urine Rare /hpf (Few); Urobilinogen Urine Negative mg/dL (<2.0); WBC Urine 0-3 /hpf
[2020-10-28] MEDS: PANTOPRAZOLE SODIUM IV 40 MG VIAL IV PUSH (00:39)
[2020-10-28 00:53] VITALS: BP 99/64; PULSE 93; RESP 16; O2SAT 97
== END 2020-10-28 00:52 | disposition home or self-care (01) ==
PROVIDERS: Emergency Medicine; Emergency Provider Emergency Medicine; PCP Family Medicine
DX: K29.01 Acute gastritis with bleeding (principal); C34.92 Malignant neoplasm of unspecified part of left bronchus or lung; C79.9 Secondary malignant neoplasm of unspecified site; E78.5 Hyperlipidemia, unspecified; Z90.2 Acquired absence of lung [part of]; Z87.891 Personal history of nicotine dependence
CPT/HCPCS: 36415; 80053; 81001; 83690; 85025; 96361; 96374; 99284; C9113; J7120

== ENCOUNTER 2021-10-18 00:15 | Day surgery (SDC) | payer BC, SELFPAY ==
[2021-10-03 15:12] VITALS: BMI 26.8
--- NOTE | 2021-10-18 08:58 | WPDANESEPPF ---
Anes - Initial Pre Proc Eval Procedure: Operation Date: 10/18/21 10:45 Proposed Procedures p Screening Colonoscopy - Jasper Juan MD Date/Time: 10/18/21 08:58 Surgeon: Jasper Juan MD Pre Op Diagnosis: hx of colon polyps Patient Data Age: 56 Gender: M Height: 1.73 m Weight: 80 kg Allergies Allergy/AdvReac Type Severity Reaction Status Date / Time amoxicillin Allergy Unknown Rash Verified 10/18/21 09:34 Penicillins Allergy Unknown rash Verified 10/18/21 09:34 Home Medications Medication Instructions Recorded Confirmed Type pantoprazole [Protonix] 40 mg PO HS #7 tablet 10/28/20 10/03/21 Rx hydrocortisone 15 mg PO DAILY 10/03/21 10/18/21 History pembrolizumab [Keytruda] 400 mg IV [id number] 10/03/21 10/03/21 History triamcinolone acetonide 1 applic TOPICAL PRN PRN 10/03/21 10/03/21 History Lacto.acidophilus-Bif.animalis 1 cap PO DAILY 10/11/21 10/11/21 History [Daily Probiotic] multivit with min-folic acid 1 tablet PO DAILY 10/11/21 10/11/21 History [Adult One Daily Multivitamin] Patient hx anesthesia problems: none Family hx anesthesia problems: none Results Review: All pre-operative results and documents have been reviewed as part of the pre-operative evaluation. [facility] Past Medical History Medical History Adenosquamous carcinoma of left lung Arthritis HLD (hyperlipidemia) Metastatic lung cancer (metastasis from lung to other site) Overweight (BMI 25.0-29.9) Surgical History Surgical History Status post partial lobectomy of lung Family History Family History Mother Family history of diabetes mellitus in first degree relative IBS (irritable bowel syndrome) Father Family history of coronary artery disease Social History Social History Smoking packs per day: 0.75 Smoking cigarettes per day: 15.0 Years smoked: 41 Smoking pack-years: 30.75 Smoking status: Former smoker Tobacco type: cigarettes Second hand tobacco smoke exposure: Yes Smoking end date: 12/23/19 Additional smoking assessment comments: smoked for 42 years ago Alcohol intake: former Drinks per week: 12 Alcohol use details: last drink 10 years ago Substance use: former Substance use type: marijuana Living arrangements: with family Gender identity (if verbalized by the patient): Male Sexual Orientation (if Verbalized by the Patient): Straight or Heterosexual Spiritual care concerns: No Anes - Eval Final PreProcedure Day of Procedure 10/18/21 08:58 Patient weight: overweight Heart: regular rate and rhythm Lungs: clear to auscultation and normal air movement Airway: Mallampati scale class II Neurological: alert and oriented Last oral intake: >/= 8 hours ASA classification: III Emergent: no Anesthetic plan: proceed Anesthesia type and monitoring: general GIVS Results Review: All pre-operative results and documents have been reviewed as part of the pre-operative evaluation. Informed Consent: The patient's anesthetic plan and its attendant risks and benefits were discussed with the patient/family/POA. Questions were solicited and answers provided to the satisfaction of the patient/family/POA.
[2021-10-18 09:36] VITALS: BP 89/68; PULSE 89; RESP 16; TEMP 36.6; O2SAT 100
[2021-10-18] MEDS: LACTATED RINGERS 1,000 ML 150 ML IV CONT (09:48)
--- NOTE | 2021-10-18 09:50 | PM.HPGS ---
History of Present Illness History of Present Illness Consent: Risks, benefits, and alternatives have been discussed and questions answered. Patient agrees to proceed with procedure. Chief complaint: hx of colon polyps Narrative: Jorden Koch is a 56 year old male referred for colon cancer screening. He has history of colon polyps removed 5 years ago. Review of Systems Review of Systems: All systems reviewed & are unremarkable except as noted in HPI and below PMFSH Past Medical History Medical History Adenosquamous carcinoma of left lung Arthritis HLD (hyperlipidemia) Metastatic lung cancer (metastasis from lung to other site) Overweight (BMI 25.0-29.9) Surgical History Surgical History Status post partial lobectomy of lung Family History Family History Mother Family history of diabetes mellitus in first degree relative IBS (irritable bowel syndrome) Father Family history of coronary artery disease Social History Social History Smoking packs per day: 0.75 Smoking cigarettes per day: 15.0 Years smoked: 41 Smoking pack-years: 30.75 Smoking status: Former smoker Tobacco type: cigarettes Second hand tobacco smoke exposure: Yes Smoking end date: 12/23/19 Additional smoking assessment comments: smoked for 42 years ago Alcohol intake: former Drinks per week: 12 Alcohol use details: last drink 10 years ago Substance use: former Substance use type: marijuana Living arrangements: with family Gender identity (if verbalized by the patient): Male Sexual Orientation (if Verbalized by the Patient): Straight or Heterosexual Spiritual care concerns: No Meds Home Medications and Allergies Home Medications Medication Instructions Recorded Confirmed Type pantoprazole [Protonix] 40 mg PO HS #7 tablet 10/28/20 10/03/21 Rx hydrocortisone 15 mg PO DAILY 10/03/21 10/18/21 History pembrolizumab [Keytruda] 400 mg IV [id number] 10/03/21 10/03/21 History triamcinolone acetonide 1 applic TOPICAL PRN PRN 10/03/21 10/03/21 History Lacto.acidophilus-Bif.animalis 1 cap PO DAILY 10/11/21 10/11/21 History [Daily Probiotic] multivit with min-folic acid 1 tablet PO DAILY 10/11/21 10/11/21 History [Adult One Daily Multivitamin] Allergies Allergy/AdvReac Type Severity Reaction Status Date / Time amoxicillin Allergy Unknown Rash Verified 10/18/21 09:34 Penicillins Allergy Unknown rash Verified 10/18/21 09:34 Vital Signs Vital Signs - 24 hr 10/18/21 09:36 Temperature 36.6 C Pulse Rate 89 Respiratory Rate 16 Blood Pressure 89/68 L Pulse Oximetry 100 Exam Resp: Auscultation: clear to auscultation bilaterally Cardio: Rate: regular rate Rhythm: regular rhythm GI: GI Palp: Yes Soft to palpation and No Tenderness to palpation present (GI) Assessment and Plan Assessment and plan (1) Colon cancer screening: Code(s): Z12.11 - Encounter for screening for malignant neoplasm of colon Status: Acute Assessment and Plan: Colonoscopy with possible biopsy or polypectomy or cautery or injection of substances.
--- NOTE | 2021-10-18 10:03 | PM.HPGS ---
History of Present Illness History of Present Illness Consent: Risks, benefits, and alternatives have been discussed and questions answered. Patient agrees to proceed with procedure. Chief complaint: hx of colon polyps Narrative: Jorden Koch is a 56 year old male referred for colon cancer screening. He had 2 adenomas removed about 5 years ago. Review of Systems Review of Systems: All systems reviewed & are unremarkable except as noted in HPI and below PMFSH Past Medical History Medical History Adenosquamous carcinoma of left lung Arthritis HLD (hyperlipidemia) Metastatic lung cancer (metastasis from lung to other site) Overweight (BMI 25.0-29.9) Surgical History Surgical History Status post partial lobectomy of lung Family History Family History Mother Family history of diabetes mellitus in first degree relative IBS (irritable bowel syndrome) Father Family history of coronary artery disease Social History Social History Smoking packs per day: 0.75 Smoking cigarettes per day: 15.0 Years smoked: 41 Smoking pack-years: 30.75 Smoking status: Former smoker Tobacco type: cigarettes Second hand tobacco smoke exposure: Yes Smoking end date: 12/23/19 Additional smoking assessment comments: smoked for 42 years ago Alcohol intake: former Drinks per week: 12 Alcohol use details: last drink 10 years ago Substance use: former Substance use type: marijuana Living arrangements: with family Gender identity (if verbalized by the patient): Male Sexual Orientation (if Verbalized by the Patient): Straight or Heterosexual Spiritual care concerns: No Meds Home Medications and Allergies Home Medications Medication Instructions Recorded Confirmed Type pantoprazole [Protonix] 40 mg PO HS #7 tablet 10/28/20 10/03/21 Rx hydrocortisone 15 mg PO DAILY 10/03/21 10/18/21 History pembrolizumab [Keytruda] 400 mg IV [id number] 10/03/21 10/03/21 History triamcinolone acetonide 1 applic TOPICAL PRN PRN 10/03/21 10/03/21 History Lacto.acidophilus-Bif.animalis 1 cap PO DAILY 10/11/21 10/11/21 History [Daily Probiotic] multivit with min-folic acid 1 tablet PO DAILY 10/11/21 10/11/21 History [Adult One Daily Multivitamin] Allergies Allergy/AdvReac Type Severity Reaction Status Date / Time amoxicillin Allergy Unknown Rash Verified 10/18/21 09:34 Penicillins Allergy Unknown rash Verified 10/18/21 09:34 Vital Signs Vital Signs - 24 hr 10/18/21 09:36 Temperature 36.6 C Pulse Rate 89 Respiratory Rate 16 Blood Pressure 89/68 L Pulse Oximetry 100 Exam Const: General: alert Orientation/consciousness: patient oriented x3 Resp: Auscultation: clear to auscultation bilaterally Cardio: Rhythm: regular rhythm GI: GI Palp: Yes Soft to palpation and No Tenderness to palpation present (GI) Neuro: General: patient oriented x3 Assessment and Plan Assessment and plan (1) Colon cancer screening: Code(s): Z12.11 - Encounter for screening for malignant neoplasm of colon Status: Acute Assessment and Plan: Colonoscopy with possible biopsy or polypectomy or cautery or injection of substances.
[2021-10-18 10:28] VITALS: BP 90/70; PULSE 70; RESP 14; O2SAT 100
[2021-10-18 10:38] VITALS: BP 108/76; PULSE 73; RESP 16; O2SAT 100
[2021-10-18 10:48] VITALS: BP 108/80; PULSE 72; RESP 17; O2SAT 100
== END 2021-10-18 10:58 | disposition home or self-care (01) ==
PROVIDERS: PCP Family Medicine; Visit Provider Internal Medicine Gastroenterology
PROC: 0DJD8ZZ Inspection of Lower Intestinal Tract, Via Natural or Artificial Opening Endoscopic (ICD-10-PCS; CPT 45378; principal; 2021-10-18 10:45)
DX: Z12.11 Encounter for screening for malignant neoplasm of colon (principal); Z86.010 Personal history of colon polyps; E78.5 Hyperlipidemia, unspecified; Z85.118 Personal history of other malignant neoplasm of bronchus and lung; Z90.2 Acquired absence of lung [part of]; Z87.891 Personal history of nicotine dependence
CPT/HCPCS: 45378; J2704; J7120

== ENCOUNTER 2022-07-02 06:45 | Observation (INO) | payer BC, SELFPAY ==
[2022-07-02] VITALS (15 sets, daily range): BP systolic 95–110; BP diastolic 60–73; PULSE 81–96; RESP 14–18; TEMP 36.4–36.8; O2SAT 96–100
--- NOTE | ~2022-07-02 | XR_ITS ---
EXAMINATION: XR chest 1V portable DATE: 07/02/2022 12:46 INDICATION: Cough. Shortness of breath. TECHNIQUE: A single frontal view of the chest was obtained. COMPARISON: Chest 2 views 03/14/2020, chest CT 03/11/2020 FINDINGS: There is mild elevation of left hemidiaphragm. There is a small left pleural effusion versu s pleural thickening. There is mild atelectasis at left lung base. No pneumothorax. The heart size is normal. IMPRESSION: 1. Small left pleural effusion versus pleural thickening. Reviewed, dictated and finalized at location A. ROLLING COORDINATOR
[2022-07-02 09:55] LABS: Basophils Percent Auto 0.3 % (0.2-1.2); Eosinophils Absolute Auto 0.2 K/mm3 (0-0.3); Eosinophils Percent Auto 2.4 % (0-4.4); Hematocrit 42.9 % (42.0-52.0); Hemoglobin 15.1 g/dL (14.0-18.0); Immature Granulocyte Absolute 0.01 K/mm3 (0.00-0.031); Immature Granulocyte Percent A 0.2 % (0-0.5); Lymphocytes Absolute Auto 1.32 K/mm3 (0.9-3.2); Mean Corpuscular HGB Conc 35.2 g/dl (32-36); Mean Corpuscular Hemoglobin 30.9 pg (26-34); Mean Corpuscular Volume 87.7 fl (80-100); Mean Platelet Volume 9.5 fl (7.4-10.4); Monocytes Percent Auto 15.8 % (2.6-8.5); Neutrophils Percent Auto 61.3 % (45.5-73.1); Platelet Count Result 161 k/mm3 (150-375); Red Blood Count 4.89 M/mm3 (4.6-6.20); Red Cell Distribution Width 11.9 % (11.5-14.5); White Blood Count 6.6 K/mm3 (4.5-10.0)
[2022-07-02 10:05] LABS: Alanine Aminotransferase 43 U/L (6-50); Albumin Level 4.5 g/dL (3.5-5.1); Alkaline Phosphatase 87 U/L (38-126); Anion Gap 5 mmol/L (8-16); Aspartate Amino Transferase 62 U/L (17-59); Bilirubin,Total 1.9 mg/dL (0.2-1.3); Blood Urea Nitrogen 17 mg/dL (9-20); Calcium 8.5 mg/dL (8.4-10.2); Carbon Dioxide 29 mmol/L (22-30); Chloride 93 mmol/L (98-107); Estimated CRCL calculation 88 ml/min; Estimated Glomerular Filt Rate > 60; Glucose 94 mg/dL (65-110); Lipase 98 U/L (23-300); Potassium 3.7 mmol/L (3.4-5.0); Sodium 127 mmol/L (137-145)
[2022-07-02] MEDS: ONDANSETRON INJ 4 MG/2 ML VIAL IV PUSH (10:22)
[2022-07-02] MEDS: SODIUM CHLORIDE 0.9% IV 1,000 ML 999 ML IV CONT ×2 (10:22→10:50)
--- NOTE | 2022-07-02 10:28 | ED.URI ---
HPI - URI/Sore Throat General Chief Complaint: Upper Respiratory Infection Stated Complaint: took a covid test at home and it was positive Time Seen by Provider: 07/02/22 08:27 Source: patient and RN notes reviewed Mode of arrival: ambulatory Limitations: no limitations History of Present Illness HPI Narrative: This is a 56 year old male who presents for evaluation of nausea and vomiting with covid diagnosis. PAtient developed subjective fever and chills on Saturday. He also reports cough, nausea, vomiting and increased lethargy. He tested positive for covid with an at home test. Related Data Home Medications Medication Instructions Recorded Confirmed Lactobacillus 1 cap PO DAILY 10/11/21 07/02/22 acidophilus-Bifidobac.animalis 2.5 billion cell capsule (Daily Probiotic) multivitamin with minerals-folic 1 tablet PO DAILY 10/11/21 07/02/22 acid 0.4 mg tablet hydrocortisone 5 mg tablet See Rx Instructions .Route .COMPLEX 07/02/22 07/02/22 Allergies Allergy/AdvReac Type Severity Reaction Status Date / Time amoxicillin Allergy Unknown Rash Verified 11/23/21 15:44 Penicillins Allergy Unknown rash Verified 11/23/21 15:44 Review of Systems Constitutional: Constitutional: Reports chills, Reports fatigue, Reports fever(s) and Reports weakness ENT: Reports nasal congestion Cardiovascular: Cardiovascular: Denies syncope, Denies rapid heart rate, Denies irregular heart rhythm, Denies leg edema and Denies dyspnea Respiratory: Respiratory: Denies chest congestion, Reports cough, Denies hemoptysis, Denies excessive phlegm production and Denies dyspnea Gastrointestinal: Gastrointestinal: Denies abdominal pain, Denies hematochezia, Reports diarrhea, Reports nausea and Reports vomiting Genitourinary: Genitourinary: Denies hematuria, Denies dysuria, Denies penile discharge and Denies testicular pain Musculoskeletal: Musculoskeletal: Denies joint swelling, Denies loss of height and Denies muscle weakness Neurologic: Denies syncope, Denies focal weakness and Denies weakness PMFSH Past Medical History Medical History Adenosquamous carcinoma of left lung Arthritis HLD (hyperlipidemia) Metastatic lung cancer (metastasis from lung to other site) Overweight (BMI 25.0-29.9) Surgical History Surgical History Status post partial lobectomy of lung Family History Family History (Updated 07/02/22 @ 15:45 by Pat Nieto RN) Mother Family history of diabetes mellitus in first degree relative IBS (irritable bowel syndrome) Father Heart disease Family history of coronary artery disease Colon cancer Sibling Alcoholism Heart disease Hypertension Grandparent Lung cancer Social History Social History Smoking packs per day: 1 Smoking cigarettes per day: 20.0 Years smoked: 41 Smoking pack-years: 41.00 Smoking status: Former smoker Tobacco type: cigarettes Second hand tobacco smoke exposure: Yes Smoking end date: 12/23/19 Additional smoking assessment comments: smoked for 42 years ago Alcohol intake: former Drinks per week: 12 Alcohol use details: last drink 10 years ago Substance use: never Substance use type: marijuana Lack of Transportation: No Lack of Food: Never True Current Housing: I Have Housing Concerned About Future Housing: No Difficulty Paying Gas/Electric Bills: No Difficulty Paying for Meds: No Currently Unemployed: No Education: High School Diploma/GED Difficulty w/ Childcare or Family Care: No Gender identity (if verbalized by the patient): Male Sexual Orientation (if Verbalized by the Patient): Straight or Heterosexual Spiritual care concerns: No Exam Const: General: no acute distress and alert Nutritional Appearance: well nourished Orientation/consciousness: patient o
--- NOTE | 2022-07-02 11:30 | PC.NURSE ---
Patient report received from DON Spears. All questions answered and care of patient assumed. Patient resting quietly in stretcher with call-light in reach. NAD. VSS at this time. Patient states I'm starting to feel better . IVF continue to infuse as ordered. Will address needs as they arise.
[2022-07-02 12:47] LABS: Add Urine Microscopic? YES; Appearance Urine Clear (Clear); Bilirubin Urine 1+ (Negative); Blood Urine Negative (Negative); Color Urine Yellow (Yellow); Glucose Urine UA Negative (Negative); Ketones Urine 1+ mg/dL (Negative); Leukocyte Esterase Ur Negative LEU/UL (Negative); Nitrate Urine Negative (Negative); Protein Urine Trace mg/dL (Negative); Specific Grav Ur 1.025 (1.001-1.035); Urobilinogen Urine 0.2 mg/dL (<2.0)
[2022-07-02 12:52] LABS: Mucus Urine Heavy /lpf; Squamous Epithelial Cell Urine Rare /hpf (Few)
[2022-07-02] MEDS: HYDROCORTISONE SODIUM SUCCINATE 100 MG/2 ML VIAL IV PUSH (12:52)
[2022-07-02 13:22] LABS: Influenza A QL RT-PCR Negative (Negative); Influenza B QL RT-PCR Negative (Negative); RSV RNA, RT-PCR Negative (Negative); SARS-CoV-2 RNA PCR Positive
[2022-07-02] MEDS: SODIUM CHLORIDE 0.9% IV 1,000 ML 125 ML IV CONT (13:22)
--- NOTE | 2022-07-02 15:00 | PM.IMHP ---
H&P: HPI History of Present Illness Date/Time: 07/02/22 15:00 Chief Complaint: Positive COVID test. 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 He has not been feeling well since Saturday with chills, fever, nausea, vomiting, loose stools, and generalized fatigue. Due to the nausea and vomiting he has not been able to hold down his medications. He denies significant sore throat, chest pain, pleuritic pain, and dysuria. No syncope or near syncope. Vital signs were stable on arrival to the emergency department; blood pressures have been on the low end of normal which he reports is normal for him. Labs were reviewed and were significant for sodium of 127, chloride 93, total bilirubin 1.9, AST 62. Chest x-ray showed a small left pleural effusion versus pleural thickening. He is being admitted in this setting for cautious hydration and close monitoring. Review of Systems Review of Systems: Twelve systems were reviewed and are negative except for as per HPI. 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 Treated at [facility], reported CT PET scan in May 2022 showed no evidence of residual malignancy. Adrenal insufficiency Arthritis Former smoker Hyperlipidemia Surgical History Surgical History (Updated 07/02/22 @ 23:08 by Basilia Giron PA-C) History of colonoscopy with polypectomy Status post partial lobectomy of lung Left lower lobectomy Family History Family History Mother Family history of diabetes mellitus in first degree relative IBS (irritable bowel syndrome) Father Heart disease Family history of coronary artery disease Colon cancer Sibling Alcoholism Heart disease Hypertension Grandparent Lung cancer Social History Social History (Updated 07/02/22 @ 23:09 by Basilia Giron PA-C) Social History: Surrogate medical decision maker: Farzaneh Koch, spouse. Code status: Full code. Smoking packs per day: 1 Smoking cigarettes per day: 20.0 Years smoked: 41 Smoking pack-years: 41.00 Smoking status: Former smoker Tobacco type: cigarettes Second hand tobacco smoke exposure: Yes Smoking end date: 12/23/19 Alcohol intake: former Drinks per week: 12 Alcohol use details: No alcohol in over 10 years. Substance use: never Lack of Transportation: No Lack of Food: Never True Current Housing: I Have Housing Concerned About Future Housing: No Difficulty Paying Gas/Electric Bills: No Difficulty Paying for Meds: No Currently Unemployed: No Education: High School Diploma/GED Difficulty w/ Childcare or Family Care: No Additional living arrangements comments: Lives with spouse in [place]. Additional occupation/education comments: Works in maintenance at [employer]. Spiritual care concerns: No Meds Home Medications and Allergies Home Medications Medication Instructions Recorded Confirmed Type Lactobacillus 1 cap PO DAILY 10/11/21 07/02/22 History acidophilus-Bifidobac.animalis 2.5 billion cell capsule (Daily Probiotic) multivitamin with minerals-folic 1 tablet PO DAILY 10/11/21 07/02/22 History acid 0.4 mg tablet hydrocortisone 5 mg tablet See Rx Instructions .Route .COMPLEX 07/02/22 07/02/22 History Allergies Allergy/AdvReac Type Severity Reaction Status Date / Time amoxicillin Allergy Unknown Rash Verified 11/23/21 15:44 Penicillins Allergy Unknown rash Verified 11/23/21 15:44 Vital Signs Vital Signs - 24 hr 07/02/22 07:33 07/02/22 07:53 07/02/22
[2022-07-02 23:40] LABS: Anion Gap 6 mmol/L (8-16); Blood Urea Nitrogen 13 mg/dL (9-20); Calcium 7.6 mg/dL (8.4-10.2); Carbon Dioxide 24 mmol/L (22-30); Chloride 101 mmol/L (98-107); Estimated CRCL calculation 99 ml/min; Estimated Glomerular Filt Rate > 60; Glucose 135 mg/dL (65-110); Potassium 3.5 mmol/L (3.4-5.0); Sodium 131 mmol/L (137-145)
[2022-07-02] MEDS: SODIUM CHLORIDE 0.9% IV 1,000 ML 80 ML IV CONT (23:55)
[2022-07-03 05:25] VITALS: BP 110/61; PULSE 90; RESP 18; TEMP 36.8; O2SAT 96
[2022-07-03 06:07] LABS: Basophils Percent Auto 0.2 % (0.2-1.2); Eosinophils Percent Auto 0.2 % (0-4.4); Hematocrit 32.1 % (42.0-52.0); Hemoglobin 11.4 g/dL (14.0-18.0); Immature Granulocyte Absolute 0.01 K/mm3 (0.00-0.031); Immature Granulocyte Percent A 0.2 % (0-0.5); Immature Platelet Fraction Pct 4.6 % (0.9-11.2); Lymphocytes Absolute Auto 1.38 K/mm3 (0.9-3.2); Lymphocytes Percent Auto 31.7 % (18.3-44.2); Mean Corpuscular HGB Conc 35.5 g/dl (32-36); Mean Corpuscular Hemoglobin 31.5 pg (26-34); Mean Corpuscular Volume 88.7 fl (80-100); Mean Platelet Volume 10.2 fl (7.4-10.4); Monocytes Absolute Auto 0.9 K/mm3 (0.1-0.6); Monocytes Percent Auto 20.9 % (2.6-8.5); Neutrophils Percent Auto 46.8 % (45.5-73.1); Platelet Count Result 152 k/mm3 (150-375); Red Blood Count 3.62 M/mm3 (4.6-6.20); White Blood Count 4.4 K/mm3 (4.5-10.0)
[2022-07-03 06:15] LABS: Alanine Aminotransferase 31 U/L (6-50); Albumin Level 3.2 g/dL (3.5-5.1); Alkaline Phosphatase 64 U/L (38-126); Anion Gap 3 mmol/L (8-16); Aspartate Amino Transferase 41 U/L (17-59); Blood Urea Nitrogen 10 mg/dL (9-20); Calcium 7.4 mg/dL (8.4-10.2); Carbon Dioxide 26 mmol/L (22-30); Chloride 103 mmol/L (98-107); Estimated CRCL calculation 99 ml/min; Estimated Glomerular Filt Rate > 60; Glucose 109 mg/dL (65-110); Potassium 3.2 mmol/L (3.4-5.0); Sodium 132 mmol/L (137-145)
[2022-07-03 06:50] LABS: Cortisol Baseline 2.35 ug/dL
[2022-07-03] MEDS: HYDROCORTISONE 10 MG TABLET BY MOUTH (08:27)
[2022-07-03 09:59] LABS: Creatinine Urine 125.5 mg/dL
[2022-07-03 10:11] LABS: Sodium Urine Random 135 meq/L
--- NOTE | 2022-07-03 12:09 | PM.DS ---
DS: Admitting Diagnosis Discharge Date July 03, 2022 Admitting Diagnosis COVID DS: Discharge Diagnosis Discharge Diagnosis (1) COVID-19: Code(s): U07.1 - COVID-19 Status: Acute (2) Hyponatremia: Code(s): E87.1 - Hypo-osmolality and hyponatremia Status: Acute (3) Dehydration: Code(s): E86.0 - Dehydration Status: Acute (4) Adrenal insufficiency: Code(s): E27.40 - Unspecified adrenocortical insufficiency Status: Acute (5) Elevated LFTs: Code(s): R79.89 - Other specified abnormal findings of blood chemistry Status: Acute DS: Summary Hospital Course Hospital Course: 56-year-old male comes in COVID pneumonia. Also had some nausea. Electrolyte abnormalities were also noted. These have been corrected he is now tolerating a normal diet. He is up ambulating in his room not requiring any oxygen. Patient wants to be discharged home he can be discharged home. Time Spent with Patient Time attestation: Total time spent providing and/or coordinating discharge services: Exam Narrative: General: alert and oriented Psych: appropriate mood nad affect Eyes: PERRLA Neck: Trachea midline, no new lesions Skin: no changes Lungs: CTA Cardiac: Normal S1,S2, no MGR ABD: soft, nd, nt, nbs Ext: no new lesions, no cce Vasc: Pulses intact DS: Data Data Completed and Pending Labs on day of discharge: Labs from last 24 hours 07/03/22 07/03/22 07/03/22 08:28 08:28 05:38 WBC RBC Hgb Hct MCV MCH MCHC RDW Plt Count MPV Immature Gran % (Auto) Neut % (Auto) Lymph % (Auto) Vance % (Auto) Eos % (Auto) Baso % (Auto) Lymph # (Auto) Vance # (Auto) Eos # (Auto) Baso # (Auto) Abs Immat Gran (auto) Absolute Neuts (auto) Absolute Nucleated RBC Nucleated RBC % % Immature Plt Fraction Sodium 132 L Potassium 3.2 L Chloride 103 Carbon Dioxide 26 Anion Gap 3 L BUN 10 Creatinine 0.70 Estim Creat Clear Calc 99 Estimated GFR > 60 Glucose 109 Serum Osmolality Calcium 7.4 L Magnesium 2.0 Total Bilirubin 1.0 AST 41 ALT 31 Alkaline Phosphatase 64 Total Protein 6.0 L Albumin 3.2 L TSH (Reflex) Random Cortisol Cortisol Baseline Urine Color Urine Appearance Urine pH Ur Specific Hanson Urine Protein Urine Glucose (UA) Urine Ketones Ur Blood (Man) Urine Nitrate Urine Bilirubin Urine Urobilinogen Leukocyte Esterase Rfl Urine RBC Urine WBC Ur Squamous Epith Cells Hyaline Casts Urine Mucus Urine Osmolality Pending Ur Random Sodium 135 Urine Creatinine 125.5 Influenza A (RT-PCR) Influenza B (RT-PCR) RSV (RT-PCR) SARS-CoV-2 RNA (RT-PCR) 07/03/22 07/03/22 07/02/22 05:38 05:38 23:26 WBC 4.4 L RBC 3.62 L Hgb 11.4 L D Hct 32.1 L MCV 88.7 MCH 31.5 MCHC 35.5 RDW 12.0 Plt Count 152 MPV 10.2 Immature Gran % (Auto) 0.2 Neut % (Auto) 46.8 Lymph % (Auto) 31.7 Vance % (Auto) 20.9 H Eos % (Auto) 0.2 Baso % (Auto) 0.2 Lymph # (Auto) 1.38 Vance # (Auto) 0.9 H Eos # (Auto) 0.0 Baso # (Auto) 0.0 Abs Immat Gran (auto) 0.01 Absolute Neuts (auto) 2.0 Absolute Nucleated RBC 0.0 Nucleated RBC % 0.0 % Immature Plt Fraction 4.6 Sodium Potassium Chloride Carbon Dioxide Anion Gap BUN Creatinine Estim Creat Clear Calc Estimated GFR Glucose Serum Osmolality Calcium Magnesium Total Bilirubin AST ALT Alkaline Phosphatase Total Protein Albumin TSH (Reflex) Random Cortisol 10.00 Cortisol Baseline 2.35 Urine Color Urine Appearance Urine pH Ur Specific Hanson Urine Protein Urine Glucose (UA) Urine Ketones Ur Blood (Man) Urine Nitrate Urine Bilirubin Urine Urobilinogen L
[2022-07-05 21:11] LABS: Osmolality, Urine 657 mOsm/kg (50-1200)
== END 2022-07-03 14:00 | disposition home or self-care (01) ==
LOC: ANHED 08:27 → ANH3MED 14:06
PROVIDERS: Physician Assistant; Admitting Provider Chiropractor; Emergency Provider General Practice; PCP Family Medicine; Visit Provider Chiropractor
DX: U07.1 COVID-19 (principal); E87.1 Hypo-osmolality and hyponatremia; E86.0 Dehydration; E27.40 Unspecified adrenocortical insufficiency; R79.89 Other specified abnormal findings of blood chemistry; E78.5 Hyperlipidemia, unspecified; Z87.891 Personal history of nicotine dependence; Z85.118 Personal history of other malignant neoplasm of bronchus and lung; Z90.2 Acquired absence of lung [part of]
CPT/HCPCS: 36415; 71045; 80048; 80053; 81001; 82533; 82570; 83690; 83735; 83930; 83935; 84300; 84443; 85025; 85055; 87637; 96361; 96374; 96375; 99285; A9270; G0378; J1720; J2405; J7030

== ENCOUNTER 2024-06-04 08:00 | Outpatient (CLI) | payer BC, SELFPAY ==
--- NOTE | ~2024-06-04 | MR_ITS ---
EXAMINATION: MR brain/brain stem wo/w con DATE: 06/04/2024 08:46 INDICATION: Headache, unspecified. TECHNIQUE: Magnetic resonance imaging (MRI) of the brain and brainstem was performed without and with 15 mL MultiHance intravenous contrast. COMPARISON: None. FINDINGS: There is no intracranial hemorrhage, acute infarction, or abnormal intracranial mass lesion . The ventricles are normal in size. The paranasal sinuses are clear. The orbits are normal. There is a small left mastoid effusion. IMPRESSION: 1. Normal brain. Reviewed, dictated and finalized at location A. AND ANKLE SURGEON IMPRESSION: 1. Normal brain.
== END 2024-06-04 08:01 | disposition home or self-care (01) ==
PROVIDERS: PCP Family Medicine; Visit Provider Family Medicine
DX: R51.9 Headache, unspecified (principal)
CPT/HCPCS: 70553; A9577